=== PATIENT | female | born 1985 | race Two or more races ===

== ENCOUNTER 2021-12-25 00:07 | Emergency (ER) | payer SELFPAY ==
[~2021-12-25] VITALS: Ht 160 cm; Wt 72.6 kg
[2021-12-25 00:20] VITALS: BP 128/82
== END 2021-12-25 01:52 ==
LOC: ER 00:07
DX: F10.920 Alcohol use, unspecified with intoxication, uncomplicated (principal); Y90.9 Presence of alcohol in blood, level not specified